=== PATIENT | male | born 1990 | race Two or more races ===

== ENCOUNTER 2022-05-08 21:26 | Emergency (ER) | payer BC ==
[~2022-05-08] VITALS: Ht 172.7 cm; Wt 70.3 kg
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
[2022-05-09] MEDS ORDERED: IBUPROFEN 400 MG TABLET PO ONE (01:30)
[2022-05-09] MEDS ORDERED: IBUPROFEN 400 MG TABLET ONE (01:46)
[2022-05-09 04:24] VITALS: BP 129/88
== END 2022-05-09 02:00 | disposition home or self-care (01) ==
LOC: ER 21:31
DX: S13.4XXA Sprain of ligaments of cervical spine, initial encounter (principal); S29.012A Strain of muscle and tendon of back wall of thorax, initial encounter; S09.90XA Unspecified injury of head, initial encounter; S70.02XA Contusion of left hip, initial encounter; V43.52XA Car driver injured in collision with other type car in traffic accident, initial encounter; Y93.89 Activity, other specified; Y92.89 Other specified places as the place of occurrence of the external cause; Y99.8 Other external cause status
CPT/HCPCS: 70450-TC; 72074-TC; 72125-TC; 73502